=== PATIENT | female | born 1985 | race Caucasian/White ===

== ENCOUNTER 2019-12-04 12:52 | Day surgery (SDC) | payer OTHER ==
[~2019-12-04 12:52] MED LIST: DIPRIVAN 200 MG/20 ML IV ONE; Ketamine HCl 50 MG/ML ONE
[2019-12-04] MEDS ORDERED: Xylocaine 1% Vial 30 ML PF IJ ONE (12:53)
[2019-12-04] MEDS ORDERED: Depo-Medrol 40 MG/ML IM ONE (12:53)
[2019-12-04] MEDS ORDERED: Sodium Chloride 0.9(Preservative Free) 10 ML IJ ONE (12:53)
--- NOTE | 2019-12-04 16:23 | XRAY ---
Indication: Lumbar SHARONA. Intraoperative fluoroscopy was provided for 15 seconds. 2 digital spot images submitted for interpretation demonstrates midline posterior needle tip projecting just posterior to the lumbosacral junction interspace. Small amount of contrast injected for needle tip placement. Correlate with intraoperative findings/report.
--- NOTE | 2019-12-04 16:29 | XRAY ---
15 seconds fluoroscopy time in surgery for lumbar SHARONA.
[2019-12-04] MEDS ORDERED: Lactated Ringers 1,000 ML IV ONE (16:51)
== END 2019-12-04 15:40 | disposition home or self-care (01) ==
LOC: SDC-PAIN 12:52
PROVIDERS: ATTEND Psychiatry & Neurology Pain Medicine
DX: M54.16 Radiculopathy, lumbar region (principal); G80.9 Cerebral palsy, unspecified; M41.9 Scoliosis, unspecified; Z79.899 Other long term (current) drug therapy
CPT/HCPCS: 62323; 72100; 77003; 84703; J1030; J2001; J2704; Q9966

== ENCOUNTER 2020-03-04 14:26 | Day surgery (SDC) | payer OTHER ==
[2020-03-04] MEDS ORDERED: Xylocaine 1% Vial 30 ML PF IJ ONE (14:27)
[2020-03-04] MEDS ORDERED: Depo-Medrol 40 MG/ML IM ONE (14:27)
[2020-03-04] MEDS ORDERED: BUPIVACAINE 0.5% VIAL IJ ONE (14:27)
--- NOTE | 2020-03-04 17:10 | XRAY ---
26 seconds of fluoroscopy was used in surgery for a bilateral SI joint injection.
--- NOTE | 2020-03-04 17:20 | XRAY ---
Indication: Bilateral SI joint injection. Intraoperative fluoroscopy provided for 26 seconds. 4 digital spot images submitted for interpretation demonstrates posterior needle tip projecting over the inferior left and right SI joint. Correlate with intraoperative findings/report.
== END 2020-03-04 16:45 | disposition home or self-care (01) ==
LOC: SDC-PAIN 14:26
PROVIDERS: ATTEND Psychiatry & Neurology Pain Medicine
DX: M46.1 Sacroiliitis, not elsewhere classified (principal); G80.9 Cerebral palsy, unspecified; Z79.899 Other long term (current) drug therapy
CPT/HCPCS: 27096; 72202; 77002; 84703; G0260; J1030; J2001

== ENCOUNTER 2020-04-29 11:14 | Day surgery (SDC) | payer OTHER ==
[2020-04-29] MEDS ORDERED: LIDOCAINE HCL 2% 100 MG/5 ML IJ ONE (11:15)
[2020-04-29] MEDS ORDERED: Depo-Medrol 40 MG/ML IM ONE (11:15)
[2020-04-29] MEDS ORDERED: Ketamine HCl 50 MG/ML ONE (13:44)
[2020-04-29] MEDS ORDERED: DIPRIVAN 200 MG/20 ML IV ONE (13:44)
--- NOTE | 2020-04-29 14:12 | XRAY ---
Indication: Bilateral L4-S1 MBB. Intraoperative fluoroscopy provided for 9 seconds. Single digital spot image submitted for interpretation demonstrates posterior needle tips projecting over the expected left and right L4-S1 nerve roots. Correlate with intraoperative findings/report.
[2020-04-29] MEDS ORDERED: Lactated Ringers 1,000 ML IV ONE (15:14)
--- NOTE | 2020-04-29 16:28 | XRAY ---
9 seconds of fluoroscopy was used in surgery for a bilateral L4-L5 and L5-S1 MBB.
== END 2020-04-29 14:06 | disposition home or self-care (01) ==
LOC: SDC-PAIN 11:14
PROVIDERS: ATTEND Psychiatry & Neurology Pain Medicine
DX: M47.816 Spondylosis without myelopathy or radiculopathy, lumbar region (principal); G80.9 Cerebral palsy, unspecified; M41.9 Scoliosis, unspecified; Z79.899 Other long term (current) drug therapy
CPT/HCPCS: 64493; 64494; 72020; 77002; 84703; J1030; J2704

== ENCOUNTER 2020-06-24 10:01 | Day surgery (SDC) | payer OTHER ==
[2020-06-24] MEDS ORDERED: BUPIVACAINE 0.5% VIAL IJ ONE (10:02)
[2020-06-24] MEDS ORDERED: DIPRIVAN 200 MG/20 ML IV ONE (11:08)
--- NOTE | 2020-06-24 12:33 | XRAY ---
Indication: Bilateral L4-S1 MBB. Intraoperative fluoroscopy provided for 10 seconds. 2 digital spot images submitted for interpretation demonstrates posterior needle tips projecting over the expected left and right L4-S1 nerve roots. Correlate with intraoperative findings/report.
--- NOTE | 2020-06-24 12:43 | XRAY ---
10 seconds fluoroscopy time in surgery for bilateral L4-S1 MBB.
[2020-06-24] MEDS ORDERED: Lactated Ringers 1,000 ML IV ONE (15:28)
== END 2020-06-24 11:37 | disposition home or self-care (01) ==
LOC: SDC-PAIN 10:01
PROVIDERS: ATTEND Psychiatry & Neurology Pain Medicine
DX: M47.816 Spondylosis without myelopathy or radiculopathy, lumbar region (principal); G80.9 Cerebral palsy, unspecified; M41.9 Scoliosis, unspecified; Z79.899 Other long term (current) drug therapy
CPT/HCPCS: 64493; 64494; 72020; 77002; 84703; J2704

== ENCOUNTER 2020-07-29 15:28 | Day surgery (SDC) | payer OTHER ==
[2020-07-29] MEDS ORDERED: Xylocaine 1% Vial 30 ML PF IJ ONE (15:29)
[2020-07-29] MEDS ORDERED: Depo-Medrol 40 MG/ML IM ONE (15:29)
[2020-07-29] MEDS ORDERED: BUPIVACAINE 0.5% VIAL IJ ONE (15:29)
[2020-07-29] MEDS ORDERED: Lactated Ringers 1,000 ML IV ONE (16:31)
[2020-07-29] MEDS ORDERED: DIPRIVAN 200 MG/20 ML IV ONE (16:34)
--- NOTE | 2020-07-30 11:35 | XRAY ---
29 seconds fluoroscopy time in surgery for left L4-S1 RFA.
== END 2020-07-29 17:10 | disposition home or self-care (01) ==
LOC: SDC-PAIN 15:28
PROVIDERS: ATTEND Psychiatry & Neurology Pain Medicine
DX: M47.816 Spondylosis without myelopathy or radiculopathy, lumbar region (principal); G80.9 Cerebral palsy, unspecified; M19.90 Unspecified osteoarthritis, unspecified site
CPT/HCPCS: 64635; 64636; 72100; 77002; 84703; J1030; J2001; J2704

== ENCOUNTER 2020-08-05 14:34 | Day surgery (SDC) | payer OTHER ==
[~2020-08-05 14:34] MED LIST changes: -DIPRIVAN 200 MG/20 ML IV ONE; -Ketamine HCl 50 MG/ML ONE; +Lactated Ringers 1,000 ML IV ONE
[2020-08-05] MEDS ORDERED: Depo-Medrol 40 MG/ML IM ONE (14:35)
[2020-08-05] MEDS ORDERED: BUPIVACAINE 0.5% VIAL IJ ONE (14:35)
[2020-08-05] MEDS ORDERED: Xylocaine 1% Vial 30 ML PF IJ ONE (14:35)
[2020-08-05] MEDS ORDERED: DIPRIVAN 200 MG/20 ML IV ONE ×2 (15:17→15:48)
[2020-08-05] MEDS ORDERED: MORPHINE SULFATE 2 MG INJ ONE ×2 (16:08→16:15)
[2020-08-05] MEDS ORDERED: Hydromorphone 1 mg/ml Injection ONE (16:21)
--- NOTE | 2020-08-05 16:32 | XRAY ---
Indication: Right L4-S1 RFA. Intraoperative fluoroscopy provided for 20 seconds. 4 digital spot images submitted for interpretation demonstrates posterior needle tips projecting over the expected right L4-S1 nerve roots. Correlate with intraoperative findings/report.
--- NOTE | 2020-08-05 16:50 | XRAY ---
20 seconds fluoroscopy time in surgery for right L4-S1 RFA.
== END 2020-08-05 16:45 | disposition home or self-care (01) ==
LOC: SDC-PAIN 14:34
PROVIDERS: ATTEND Psychiatry & Neurology Pain Medicine
DX: M47.816 Spondylosis without myelopathy or radiculopathy, lumbar region (principal)
CPT/HCPCS: 20552; 64635; 64636; 72100; 77002; 84703; J1030; J1170; J2001; J2270; J2704

== ENCOUNTER 2020-09-30 15:06 | Day surgery (SDC) | payer OTHER ==
[2020-09-30] MEDS ORDERED: LIDOCAINE HCL 2% 100 MG/5 ML IJ ONE (15:07)
[2020-09-30] MEDS ORDERED: Lactated Ringers 1,000 ML IV ONE (15:51)
[2020-09-30] MEDS ORDERED: DIPRIVAN 200 MG/20 ML IV ONE (16:20)
[2020-09-30] MEDS ORDERED: Ketamine HCl 50 MG/ML ONE (16:21)
--- NOTE | 2020-09-30 17:19 | XRAY ---
Indication: Left C2-C4 MBB. Interpreted fluoroscopy provided for 30 seconds. 3 digital spot image submitted for interpretation demonstrates posterior needle tips projecting over the expected left C2-C4 nerve roots. Correlate with intraoperative findings/report.
--- NOTE | 2020-09-30 17:21 | XRAY ---
30 seconds of fluoroscopy was used in surgery for a left C2-C4 MBB.
== END 2020-09-30 16:48 | disposition home or self-care (01) ==
LOC: SDC-PAIN 15:06
PROVIDERS: ATTEND Psychiatry & Neurology Pain Medicine
DX: M47.812 Spondylosis without myelopathy or radiculopathy, cervical region (principal); Z79.899 Other long term (current) drug therapy
CPT/HCPCS: 64490; 64491; 72040; 77002; 84703; J2704

== ENCOUNTER 2020-11-11 15:24 | Day surgery (SDC) | payer OTHER ==
[2020-11-11] MEDS ORDERED: Lactated Ringers 1,000 ML IV ONE (15:25)
[2020-11-11] MEDS ORDERED: BUPIVACAINE 0.5% VIAL IJ ONE (15:25)
[2020-11-11] MEDS ORDERED: Decadron 4 MG INJ IV ONE (15:25)
[2020-11-11] MEDS ORDERED: DIPRIVAN 200 MG/20 ML IV ONE (16:59)
--- NOTE | 2020-11-11 20:35 | XRAY ---
Indication: Left C2-C4 MBB. Intraoperative fluoroscopy provided for 30 seconds. 2 digital spot image submitted for interpretation demonstrates posterior needle tips projecting over the expected left C2-C4 nerve roots. Correlate with intraoperative findings/report.
--- NOTE | 2020-11-12 08:52 | XRAY ---
30 seconds fluoroscopy time in surgery for left C2-C4 MBB.
== END 2020-11-11 17:30 | disposition home or self-care (01) ==
LOC: SDC-PAIN 15:24
PROVIDERS: ATTEND Psychiatry & Neurology Pain Medicine
DX: M47.812 Spondylosis without myelopathy or radiculopathy, cervical region (principal); Z79.899 Other long term (current) drug therapy
CPT/HCPCS: 64490; 64491; 72040; 77002; 84703; J1100; J2704

== ENCOUNTER 2020-12-18 12:15 | Day surgery (SDC) | payer OTHER ==
[2020-12-18] MEDS ORDERED: LIDOCAINE HCL 2% 100 MG/5 ML IJ ONE (12:16)
[2020-12-18] MEDS ORDERED: Lactated Ringers 1,000 ML IV ONE (12:41)
[2020-12-18] MEDS ORDERED: DIPRIVAN 200 MG/20 ML IV ONE (14:11)
--- NOTE | 2020-12-18 14:58 | XRAY ---
34 seconds fluoroscopy time in surgery for right C2-C4 MBB.
--- NOTE | 2020-12-18 15:08 | XRAY ---
Indication: Right C2-C4 MBB. Intraoperative fluoroscopy provided for 34 seconds. 3 digital spot image submitted for interpretation demonstrates posterior needle tips projecting over the expected right C2-C4 nerve roots. Correlate with intraoperative findings/report.
== END 2020-12-18 14:25 | disposition home or self-care (01) ==
LOC: SDC-PAIN 12:15
PROVIDERS: ATTEND Psychiatry & Neurology Pain Medicine
DX: M47.812 Spondylosis without myelopathy or radiculopathy, cervical region (principal)
CPT/HCPCS: 64490; 64491; 72040; 77002; 84703; J2704

== ENCOUNTER 2021-01-21 11:56 | Day surgery (SDC) | payer OTHER ==
[2021-01-21] MEDS ORDERED: Depo-Medrol 40 MG/ML IM ONE (11:57)
[2021-01-21] MEDS ORDERED: Decadron 4 MG INJ IV ONE (11:57)
[2021-01-21] MEDS ORDERED: Xylocaine 1% Vial 30 ML PF IJ ONE (11:57)
[2021-01-21] MEDS ORDERED: BUPIVACAINE 0.5% VIAL IJ ONE (11:57)
--- NOTE | 2021-01-21 14:08 | XRAY ---
Indication: Left hip injection. Intraoperative fluoroscopy provided for 26 seconds. Single digital spot image obtained prone submitted for interpretation demonstrates needle tip projecting lateral to the left femur neck. Small amount of contrast injected for needle tip placement. Correlate with intraoperative findings/report.
--- NOTE | 2021-01-21 14:15 | XRAY ---
26 seconds fluoroscopy time in surgery for intra-articular injection of the left hip.
== END 2021-01-21 13:50 | disposition home or self-care (01) ==
LOC: SDC-PAIN 11:56
PROVIDERS: ATTEND Psychiatry & Neurology Pain Medicine
DX: M16.12 Unilateral primary osteoarthritis, left hip (principal); M79.18 Myalgia, other site; Z79.899 Other long term (current) drug therapy
CPT/HCPCS: 20552; 20610; 73501; 77002; 84703; J1030; J1100; J2001; Q9966